=== PATIENT | male | born 1970 | race Asian ===

== ENCOUNTER 2025-01-17 12:04 | Outpatient (RCR) | payer BC, MEDICARE, SELFPAY | END 2025-01-17 23:59 | disposition home or self-care (01) | LOC: RPT 12:04 | PROVIDERS: ATTENDING PHYSICIAN Physical Medicine & Rehabilitation; FAMILY PHYSICIAN Internal Medicine | DX: I69.153 Hemiplegia and hemiparesis following nontraumatic intracerebral hemorrhage affecting right non-dominant side (principal); Z73.6 Limitation of activities due to disability; G81.11 Spastic hemiplegia affecting right dominant side | CPT/HCPCS: 97110; 97112; 97162; 97530 ==

== ENCOUNTER 2025-02-11 07:01 | Outpatient (RCR) | payer MEDICARE, BC, SELFPAY | END 2025-02-11 23:59 | disposition home or self-care (01) | LOC: ROT 07:01 | PROVIDERS: ATTENDING PHYSICIAN Physical Medicine & Rehabilitation; FAMILY PHYSICIAN Internal Medicine | DX: I69.153 Hemiplegia and hemiparesis following nontraumatic intracerebral hemorrhage affecting right non-dominant side (principal); Z73.6 Limitation of activities due to disability; G81.11 Spastic hemiplegia affecting right dominant side; I67.5 Moyamoya disease | CPT/HCPCS: 97110; 97112; 97166; 97530; 97535 ==

== ENCOUNTER 2025-02-19 07:03 | Outpatient (RCR) | payer MEDICARE, BC, SELFPAY | END 2025-02-19 23:59 | disposition home or self-care (01) | LOC: ROT 07:03 | PROVIDERS: ATTENDING PHYSICIAN Physical Medicine & Rehabilitation; FAMILY PHYSICIAN Internal Medicine | DX: I69.153 Hemiplegia and hemiparesis following nontraumatic intracerebral hemorrhage affecting right non-dominant side (principal); Z73.6 Limitation of activities due to disability; G81.11 Spastic hemiplegia affecting right dominant side; I67.5 Moyamoya disease | CPT/HCPCS: 97110; 97112 ==